=== PATIENT | female | born 1990 | race Caucasian/White ===

== ENCOUNTER 2023-10-21 06:19 | Outpatient (REF) | payer OTHER, SELFPAY ==
[2023-10-21 08:22] LABS: Erythrocyte Sedimentation Rate 6 MM/HR (0-20)
== END 2023-10-21 06:20 | disposition home or self-care (01) ==
LOC: HO.LAB 06:19
PROVIDERS: PCP Internal Medicine; Visit Provider Psychiatry & Neurology Neurology
DX: G43.909 Migraine, unspecified, not intractable, without status migrainosus (principal)
CPT/HCPCS: 36415; 85652